=== PATIENT | female | born 1950 | race American Indian/Alaskan Native ===

== ENCOUNTER 2019-01-24 13:38 | Emergency (ER) | payer OTHER ==
[~2019-01-24] VITALS: Ht 172.7 cm; Wt 98.0 kg
[2019-01-24 15:29] LABS: BASOPHILS % 0.6 % (0.0-2.0); HEMATOCRIT. 42.1 % (36.0-48.0); HEMOGLOBIN. 13.9 g/dL (12.0-16.0); LYMPHOCYTES % 32.7 % (20.0-50.0); MEAN CORPUSCULAR HEMOGLOBIN 30.2 pg (28.0-32.0); MEAN CORPUSCULAR VOLUME 91.2 fL (81.0-99.0); MONOCYTES % 11.3 % (2.0-8.0); NEUTROPHILS % 51.4 % (40.0-76.0); PLATELET 176 x1000/uL (130-400); RED BLOOD CELL COUNT 4.61 mill/uL (4.2-5.4); RED CELL DISTRIBUTION WIDTH 13.4 % (11.6-14.6)
[2019-01-24 15:32] LABS: CHLORIDE 109 mEq/L (98-107)
[2019-01-24] MEDS ORDERED: ASPIRIN 325MG TABLET PO ONE (17:15)
[2019-01-24] MEDS ORDERED: AMLODIPINE 2.5MG TABLET PO ONE (18:00)
[2019-01-24 18:36] VITALS: BP 165/69
== END 2019-01-24 18:39 | disposition home or self-care (01) ==
LOC: ER 13:38
DX: R05 Cough (principal); R07.9 Chest pain, unspecified
CPT/HCPCS: 36415; 71045; 83880; 84484; 93005; 99284